=== PATIENT | female | born 1990 | race Caucasian/White ===

== ENCOUNTER 2017-05-10 10:44 | Inpatient (IN) | payer OTHER ==
[~2017-05-10] VITALS: Ht 166.4 cm; Wt 85.0 kg
--- OUTSIDE RECORDS SUMMARY | ~2017-05-10 | XMS ---
Demographics + + + | Address | [address] | | | [address] | | | [place] [address] | + + + | Preferred Language | Unknown | + + + | Marital Status | Unknown | + + + | Synagogue Affiliation | Unknown | + + + | Race | Unknown | + + + | Ethnic Group | Unknown | + + + Author + + + | Author | [facility] | + + + | Organization | [facility] | + + + | Address | [address] | | | [place] [address] | + + + | Phone | | + + + Care Team Providers + + + + | [facility] Name | Role | Phone | + + + + Unavailable | Unavailable | + + + + PROBLEMS +---------+ + + +--------+ + + | Type | Condition | ICD9-CM | SOD04-JU | Onset | Condition | SNOMED | | | | Code | Code | Dates | Status | Code | +---------+ + + +--------+ + + | Problem | Encounter | Z34.90 | | | Active | [id number] | | | for | | | | | | | | supervisio | | | | | | | | n of | | | | | | | | normal | | | | | | | | | | | | | | +---------+ + + +--------+ + + | Problem | Hemorrhagi | N83.20 | | | Active | [id number] | | | c cyst of | | | | | | | | ovary | | | | | | +---------+ + + +--------+ + + ALLERGIES Unknown Allergies SOCIAL HISTORY No smoking Hx information available PLAN OF CARE VITAL SIGNS MEDICATIONS Unknown Medications RESULTS No Results PROCEDURES No Known procedures IMMUNIZATIONS No Known Immunizations"
[~2017-05-10 10:44] MED LIST: IBUPROFEN800 MG PO; KEFLEX500 MG PO; NORCO 5-325 TA1 EACH PO
--- NOTE | 2017-05-11 05:55 | PR ---
[facility] [address] [place], [place] [address] Signed PP Progress Notes Datetime Report Generated by CPN: 05/11/2017 05:55 SUBJECTIVE: [id number] Pain: Within normal limits Nausea/Vomiting: Denies Flatus: Yes Vital Signs: [id number] Vital Signs: Reviewed; Within Normal Limits EXAM: [id number] Cardiovascular: Normal Respiratory: Normal Abdomen/Uterus: Normal Lochia: Normal Vulva/Perineum: Normal Breasts: Normal CVA Tenderness: Normal Extremities: Normal Incision: Not Applicable Progress: Not Applicable IMPRESSION/PLAN/PROCEDURES: [id number] Impression: Normal progression Plan: Discharge Progress Notes: patient doing well. Not having any smoking urge. Signing Physician: Daphney Beasley MD CC: *Electronically Signed* 05/11/17 0555 DAPHNEY BEASLEY MD PATIENT NAME: ORESTES MONTAÑO PROGRESS NOTE DATE OF : 86 PHYSICIAN: DAPHNEY BEASLEY MD RPT #: [id number] REPORT IS CONFIDENTIAL AND NOT TO BE RELEASED WITHOUT AUTHORIZATION
== END 2017-05-11 13:00 | disposition home or self-care (01) | DRG 775 ==
LOC: FBCO → FBC 11:00 → FBCO 05-25 10:11
PROVIDERS: ADMIT Obstetrics & Gynecology
PROC: 10907ZC Drainage of Amniotic Fluid, Therapeutic from Products of Conception, Via Natural or Artificial Opening (ICD-10-PCS; principal; 2017-05-10)
PROC: 10E0XZZ Delivery of Products of Conception, External Approach (ICD-10-PCS; 2017-05-10)
PROC: 0KQM0ZZ Repair Perineum Muscle, Open Approach (ICD-10-PCS; 2017-05-10)
PROC: 00HU33Z Insertion of Infusion Device into Spinal Canal, Percutaneous Approach (ICD-10-PCS; 2017-05-10)
PROC: 3E0R3CZ (ICD-10-PCS; 2017-05-10)
DX: O70.1 Second degree perineal laceration during delivery (principal); Z37.0 Single live birth; O99.334 Smoking (tobacco) complicating childbirth; F17.210 Nicotine dependence, cigarettes, uncomplicated; Z3A.37 37 weeks gestation of pregnancy; O99.344 Other mental disorders complicating childbirth; F32.9 Major depressive disorder, single episode, unspecified; O69.81X0 Labor and delivery complicated by cord around neck, without compression, not applicable or unspecified
CPT/HCPCS: 01960; 36415; 85027; J2590; J3010; J7120

== ENCOUNTER 2018-06-30 13:02 | Emergency (ER) | payer OTHER ==
[~2018-06-30] VITALS: Ht 165.1 cm; Wt 70.8 kg
[2018-06-30] MEDS ORDERED: NORCO 5-325 TA1 EACH PO (16:09)
== END 2018-06-30 16:15 | disposition home or self-care (01) ==
LOC: ED 13:02
DX: N80.8 Other endometriosis (principal); F17.200 Nicotine dependence, unspecified, uncomplicated
CPT/HCPCS: 80053; 81001; 83690; 84703; 85025; 96374; 96375; 99284; J1170; J1885

== ENCOUNTER 2019-01-04 22:09 | Emergency (ER) | payer OTHER ==
[~2019-01-04] VITALS: Ht 165.1 cm; Wt 69.0 kg
[~2019-01-04 22:09] MED LIST changes: +ADVIL200 MG PO
--- OUTSIDE RECORDS SUMMARY | 2019-01-04 22:12 | XMS ---
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 Violetta has no Care Guidelines for this patient. Emily VISIT COUNT (12 MO.) 3 [facility] TOTAL 3 NOTE: Visits indicate total known visits. ED/C VISIT TRACKING (12 MO.) 01/04/2019 22:10 [facility] [place] TYPE: Emergency COMPLAINT: - R HAND INJURY 06/30/2018 13:02 [facility] [place] TYPE: Emergency COMPLAINT: - ABD PAIN DIAGNOSES: - Pelvic and perineal pain - Acquired absence of other genital organ(s) - Nicotine dependence, unspecified, uncomplicated - Right lower quadrant pain - Acquired absence of ovaries, unilateral - Other endometriosis 03/23/2018 15:06 [facility] [place] TYPE: Emergency COMPLAINT: - L KNEE PAIN/NO INJURY/MSE TO CLINIC DIAGNOSES: - Overexertion from prolonged static or awkward postures, initial encounter - OVEREXERTION FROM PROLONGED STATIC OR AWKWARD POST - Pain in left knee INPATIENT VISIT TRACKING (12 MO.) No inpatient visits to display in this time frame [email or web address]
== END 2019-01-04 23:32 | disposition home or self-care (01) ==
LOC: ED 22:09
DX: S60.221A Contusion of right hand, initial encounter (principal); I25.2 Old myocardial infarction; Z90.710 Acquired absence of both cervix and uterus; F17.200 Nicotine dependence, unspecified, uncomplicated; Z88.0 Allergy status to penicillin; Z88.2 Allergy status to sulfonamides; W22.01XA Walked into wall, initial encounter
CPT/HCPCS: 73130; 99283

== ENCOUNTER 2019-09-01 09:17 | Emergency (ER) | payer OTHER ==
[~2019-09-01] VITALS: Ht 167.6 cm; Wt 60.8 kg
[2019-09-01] MEDS ORDERED: CLEOCIN HCL300 MG PO (10:32)
[2019-09-01] MEDS ORDERED: NORCO 5-325 TA1 EACH PO (10:32)
== END 2019-09-01 10:48 | disposition home or self-care (01) ==
LOC: ED 09:17
PROC: 0W9N0ZZ Drainage of Female Perineum, Open Approach (ICD-10-PCS; principal; 2019-09-01)
DX: L02.215 Cutaneous abscess of perineum (principal); F17.200 Nicotine dependence, unspecified, uncomplicated; Z88.0 Allergy status to penicillin; Z88.2 Allergy status to sulfonamides
CPT/HCPCS: 56405; 99283-25

== ENCOUNTER 2019-09-02 18:54 | Emergency (ER) | payer OTHER ==
[~2019-09-02] VITALS: Ht 167.6 cm; Wt 60.8 kg
[~2019-09-02 18:54] MED LIST changes: +CLEOCIN HCL300 MG PO
--- OUTSIDE RECORDS SUMMARY | 2019-09-02 18:58 | XMS ---
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 Violetta has no Care Guidelines for this patient. Emily VISIT COUNT (12 MO.) 4 [facility] TOTAL 4 NOTE: Visits indicate total known visits. ED/C VISIT TRACKING (12 MO.) [facility] COMPLAINT: - LOWER ABDOMINAL PAIN 09/01/2019 09:18 [facility] [place] TYPE: Emergency COMPLAINT: - LOWER EXTREMITY CYST 03/15/2019 13:56 [facility] [place] TYPE: Emergency COMPLAINT: - HEADACHE/BODY ACHES DIAGNOSES: - Acquired absence of both cervix and uterus - Headache - Allergy status to sulfonamides status - Allergy status to penicillin - Nicotine dependence, unspecified, uncomplicated 01/04/2019 22:10 [facility] [place] TYPE: Emergency COMPLAINT: - R HAND INJURY DIAGNOSES: - Allergy status to penicillin - Acquired absence of both cervix and uterus - Nicotine dependence, unspecified, uncomplicated - Pain in right hand - Allergy status to sulfonamides status - Walked into wall, initial encounter - Old myocardial infarction - Contusion of right hand, initial encounter INPATIENT VISIT TRACKING (12 MO.) No inpatient visits to display in this time frame [email or web address]
== END 2019-09-02 22:04 | disposition home or self-care (01) ==
LOC: ED 18:54
DX: R10.31 Right lower quadrant pain (principal); F17.200 Nicotine dependence, unspecified, uncomplicated; Z88.0 Allergy status to penicillin; Z88.2 Allergy status to sulfonamides
CPT/HCPCS: 74177; 80053; 81001; 83690; 83735; 84703; 85025; 99284-25; J2270; J2405; J7030; Q9967

== ENCOUNTER 2019-09-11 16:28 | Emergency (ER) | payer OTHER ==
[~2019-09-11] VITALS: Ht 167.6 cm; Wt 60.8 kg
[~2019-09-11 16:28] MED LIST changes: +IBU800 MG PO
--- OUTSIDE RECORDS SUMMARY | 2019-09-11 16:30 | XMS ---
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 EAnna VISIT COUNT (12 MO.) 6 [facility] TOTAL 6 NOTE: Visits indicate total known visits. ED/UCC VISIT TRACKING (12 MO.) 09/11/2019 16:28 [facility] [place] TYPE: Emergency COMPLAINT: - FLANK PAIN 09/06/2019 11:[address] [facility] TYPE: Emergency COMPLAINT: - ABDOMINAL PAIN 09/02/2019 18:55 [facility] TYPE: Emergency COMPLAINT: - LOWER ABDOMINAL PAIN DIAGNOSES: - Right lower quadrant pain - Nicotine dependence, unspecified, uncomplicated - Allergy status to sulfonamides status - Allergy status to penicillin 09/01/2019 09:18 [facility] [place] TYPE: Emergency COMPLAINT: - LOWER EXTREMITY CYST DIAGNOSES: - Pelvic and perineal pain - Allergy status to sulfonamides status - Cutaneous abscess of perineum - Nicotine dependence, unspecified, uncomplicated - Allergy status to penicillin 03/15/2019 13:56 [facility] [place] TYPE: Emergency [...] visits to display in this time frame [email or web address]
== END 2019-09-11 18:29 | disposition home or self-care (01) ==
LOC: ED 16:28
DX: R10.9 Unspecified abdominal pain (principal); F17.200 Nicotine dependence, unspecified, uncomplicated; Z88.0 Allergy status to penicillin; Z88.2 Allergy status to sulfonamides
CPT/HCPCS: 96374; 99284-25; J1885

== ENCOUNTER 2019-10-18 11:14 | Day surgery (SDC) | payer OTHER ==
[~2019-10-18] VITALS: Ht 167.6 cm; Wt 60.8 kg
--- NOTE | 2019-10-18 19:20 | NUR ---
10/18/191919 Patti Lyons 191- PT ARRIVES TO PACU AROUSABLE AND TRYING TO TALK. PT IS ABLE TO SAY SHE FEELS OKAY. RESP EVEN AND UNLABORED. OXYGEN SAT HIGH 90'S TO 100% ON 6L VIA BLOWBY THE PT IS NOT TOLERATING THE MASK BEING ON HER FACE. 1911 AND 1914 VITALS THE PT IS ON BLOW BY OXYGEN NOT BIPAP. 1919- OXYGEN TITRATED OFF.
--- NOTE | 2019-10-18 19:50 | NUR ---
VITALS DONE AND CHARTED. BEDSIDE TABLE AND CALL LIGHT IN REACH. SCD'S PUT ON. WARM BLANKET GIVEN. PT NEEDS NOTHING MORE AT THIS TIME.
--- NOTE | 2019-10-18 20:04 | NUR ---
PT ARRIVED ON THE FLOOR. ALERT, ORIENTED X4. DENIED PAIN. NO NAUSEA. ASKED FOR MORE ICE CHIPS AND JELO. LUNGS CLEAR, HR REGULAR, VSS WNL. FAMILY AT THE BEDSIDE, SUPPORTIVE.
--- NOTE | 2019-10-18 20:45 | NUR ---
PHONE CALL TO MD. TELEPHONE ORDERS FOR MEDICATIONS, TAKE HOME PACKS REPEATED BACK.
--- NOTE | 2019-10-18 21:02 | NUR ---
pt UP AMBULATING IN ROOM. DENIES DIZZINESS, NUMBNESS IN EXTREMITIES. 100 ML VOID NOTED. TOLERATING PO INTAKE, NO NAUSEA. BATCH TRUCKER RN CALLED, WILL BRING TAKE HOME PACKS.
--- NOTE | 2019-10-18 21:41 | NUR ---
DEBORAH GROVE REMOVED IV. PT REPORTED PAIN 6/10, PERCOSET AND IBUPROFEN WERE GIVEN. DISCHRGE EDUCATION WAS POVIDED BY CHARGE NURSE. ALL QUESTIONS WERE ANSWERED. PT HAD ALL HER BELONGINS UPON DISCHRGE. SHE WAS WHEELED OUT BY DEBORAH.
--- NOTE | 2019-10-18 21:42 | NUR ---
IV REMOVED BY SAUNDRA CABRERA. PATIENT PROVIDED WITH EDUCATION ON PATCH. PATIENT VERBALIZED UNDERSTANDING. PATIENT PROVIDED WITH TAKE HOME PACK. PATIENT GIVEN PRN PAIN MEDICATION PER ORDER. PATIENT PROVIDED WITH DC INSTRUCTIONS. PATIENT DENIES ANY COMMENTS, QUESTIONS OR CONCERNS. NO NEEDS NOTED. CALL LIGHT IN REACH.
--- NOTE | 2019-10-19 09:32 | CONS ---
[facility] [address], [place] [address] Signed DATE OF CONSULTATION: 10/18/2019 HISTORY OF PRESENT ILLNESS: The patient is a 29-year-old female, 7, para 3, SAB 4, who is status post prior TLH-LSO, who presented to the emergency room tonight with acute onset of right flank and right lower quadrant pain. The pain began approximately 3 p.m. on 10/17. She initially thought she had pulled a muscle and treated herself with pain patches such as Icy Hot, but really did not receive any relief. Since that time, she has been unable to sleep or get comfortable in any position. She has had some nausea, but no vomiting. Her bowels have been moving normally. She has no urinary symptoms. The pain is constant and not spasmodic. She does have a history of endometriosis and has undergone prior TLH-LSO for similar symptoms. She had a similar episode of pain one month ago and did have a laparoscopy, but a ruptured cyst was found and no other abnormalities. REVIEW OF SYSTEMS: Otherwise negative. PAST MEDICAL HISTORY/SURGERIES: In 2004, tonsillectomy. In 2005, left breast lumpectomy which was benign. In June 2015, LSO. In July 2018, TLH. In August 2019, laparoscopy. Illnesses are positive for history of migraines in the past. ALLERGIES: Penicillin and sulfa with hives. MEDICATIONS: None. HABITS: Positive tobacco, about one pack per day. Positive for alcohol use occasionally. Negative for drug use. PHYSICAL EXAMINATION: VITAL SIGNS: Stable. Blood pressure 117/79, pulse 45, and temperature 99.4. GENERAL: She is a well-developed and well-nourished female in mild distress. She is alert and oriented. Her affect is pleasant. LUNGS: Clear. HEART: Regular rate and rhythm without murmur. ABDOMEN: Has positive bowel sounds. It is soft. It is tender in the lower quadrants, right greater than left. She also has right CVA tenderness. She has no rebound. PELVIC: Deferred. LABORATORY DATA: Electronically Signed By: RIZWANA CEDILLO MD 10/19/19 0932 PATIENT NAME: ORESTES MONTAÑO CONSULTATION DATE OF : 86 REPORT #: [id number] PHYSICIAN: RIZWANA CEDILLO MD PCP: BLANKA HERNANDEZ PAC REPORT IS CONFIDENTIAL AND NOT TO BE RELEASED WITHOUT AUTHORIZATION [facility] [address], [place] [address] Signed H and H were 13.7 and 41.4, white count 7.8, and platelets 209,000. CMP was completely normal. Urine was negative. Ultrasound revealed a right ovary measuring 9.2 x 5.6 x 5.8 cm with three cysts with moderate echogenic free fluid in the abdomen. There was blood flow noted to the ovary. IMPRESSION: Probable hemorrhagic right ovarian cyst with probable rupture given the echogenic free fluid. This ovary has been the cause of recurrent pain. At this point, I feel laparoscopy with RSO was her best option. She will be menopausal and it is stressed that she will need to use estrogen replacement to protect her bones and her heart. The risks of surgery including, but not limited to, infection, bleeding, and possible open procedure as well as intraabdominal or pelvic injury were all discussed. She had no questions and requests no further information. She is also a smoker and this was also discussed. PLAN: Laparoscopy with RSO BRENDA. Rizwana Cedillo MD PJW/MODL /[id number] cc: Sunny Mccarty DO Copies: SUNNY MCCARTY DO ~ Electronically Signed By: RIZWANA CEDILLO MD 10/19/19 0932 PATIENT NAME: ORESTES MONTAÑO CONSULTATION DATE OF : 86 REPORT #: [id number] PHYSICIAN: RIZWANA CEDILLO MD PCP: BLANKA HERNANDEZ PAC REPORT IS CONFIDENTIAL AND NOT TO BE RELEASED WITHOUT AUTHORIZATION
--- NOTE | 2019-10-19 09:35 | OR ---
[facility] [address] [place], [place] [address] Signed DATE OF OPERATION: 10/18/2019 SURGEON: Rizwana Cedillo MD COMMUNITY RELATIONS ASSISTANT: Eduardo Dunlap MD PREOPERATIVE DIAGNOSES: Pelvic pain and right ovarian mass. POSTOPERATIVE DIAGNOSES: Pelvic pain and right ovarian mass with right ovarian torsion. PROCEDURE: Laparoscopy with right oophorectomy. ANESTHESIA: General ET. ESTIMATED BLOOD LOSS: 15 mL. DRAINS: None. INDICATIONS AND FINDINGS: The patient is a 29-year-old female, 7, para 3, AB 4, who presented to the emergency room with a history of pain, which began suddenly at 3 p.m. yesterday. The pain worsened since that time and the patient was unable to become comfortable in any position and was unable to sleep. When she presented to the emergency room, she was found to have a right adnexal mass approximately 9 cm consisting of three separate cysts. There was a moderate amount of free blood in the abdomen. There was blood flow to the ovary, though there was still a question of possible torsion. The patient was consented and taken to the operating room. At the time of surgery, there was a moderate amount of blood in the abdomen. There was a large right adnexal mass and there was torsion noted. DESCRIPTION OF PROCEDURE: The patient was prepped and draped in the dorsal lithotomy position. A sponge stick was placed in the vagina and a Villaseñor catheter was placed at the onset of surgery. Following Electronically Signed By: RIZWANA CEDILLO MD 10/19/19 0935 PATIENT NAME: ORESTES MONTAÑO OPERATIVE REPORT DATE OF : 86 REPORT #: [id number] PHYSICIAN: RIZWANA CEDILLO MD PCP: BLANKA HERNANDEZ PAC REPORT IS CONFIDENTIAL AND NOT TO BE RELEASED WITHOUT AUTHORIZATION [facility] [address] [place], [place] [address] Signed this, attention was directed to the abdomen. The infraumbilical area was injected with 0.5% Marcaine plain. An incision was made through her prior incision and then each layer was serially elevated until the fascia was opened and identified. The fascia was very scarred given her prior surgeries. Stay sutures of 0 Vicryl were placed. Peritoneum was opened bluntly and the [place] cannula was placed. Placement of the scope confirmed proper positioning. CO2 was then introduced in the abdomen. Following this, secondary ports were placed in the right and left lower quadrants. These areas were transilluminated and injected with Marcaine. Incisions were made with a knife and the trocars were placed under direct vision. These were 5 mm ports. Following this, the pelvis was visualized and the decision was made to proceed with right oophorectomy given the torsion. The infundibulopelvic ligament was grasped and cauterized with LigaSure [place] device. This was done multiple times and then divided. The ovary was then removed from the pelvic sidewall with serial coagulation and division. The ovary was then dropped into the pelvis. 0 PDS Endoloop was then placed over the infundibulopelvic ligament to aid in hemostasis. Following this, the ovary was placed into a bag and this was brought out through the umbilical port. This required the ovary to be torn up to make it smaller in an effort to fit through the port. Following this, the [place] cannula was then replaced at the umbilicus and the balloon reinflated. The abdomen was then reinflated as well. The abdomen was then copiously irrigated and inspected. There was some blood noted above the liver and this was irrigated out as well. The patient was taken out of Trendelenburg and re-irrigated and as much fluid removed from the abdomen as possible. Following this, the pelvis was re-examined. There was no evidence of any ongoing bleeding. The pressure was turned down as well and again there was no evidence of any bleeding. The procedure was then terminated. The instruments were removed from the abdomen after allowing as much CO2 as possible to escape. The fascial incision of the umbilicus was re-identified and was closed with running suture of 0 Vicryl. There was quite a bit of bleeding in the subcu areas and these were cauterized. The deep space of the umbilicus was closed with a subcu suture of the 3-0 Vicryl Rapide. The skin incisions were closed with subcuticular sutures of 3-0 Vicryl Rapide. Following this, the sponge stick was removed from the vagina as was the Villaseñor. The patient was then taken to the recovery room in good condition. Rizwana Cedillo MD PJW/MODL /[id number] Electronically Signed By: RIZWANA CEDILLO MD 10/19/19 0935 PATIENT NAME: ORESTES MONTAÑO OPERATIVE REPORT DATE OF : 86 REPORT #: [id number] PHYSICIAN: RIZWANA CEDILLO MD PCP: BLANKA HERNANDEZ PAC REPORT IS CONFIDENTIAL AND NOT TO BE RELEASED WITHOUT AUTHORIZATION [facility] [address] [place], [place] [address] Signed cc: Dr. Lul Dunlap MD Copies: EDUARDO DUNLAP MD ~ Electronically Signed By: RIZWANA CEDILLO MD 10/19/19 0935 PATIENT NAME: ORESTES MONTAÑO OPERATIVE REPORT DATE OF : 86 REPORT #: [id number] PHYSICIAN: RIZWANA CEDILLO MD PCP: BLANKA HERNANDEZ PAC REPORT IS CONFIDENTIAL AND NOT TO BE RELEASED WITHOUT AUTHORIZATION
--- NOTE | 2019-10-21 11:43 | PATH ---
[facility] [address] [place] [address] Signed SPECIMEN(S): A RIGHT OVARY SPECIMEN SOURCE: A. RIGHT OVARY CLINICAL HISTORY: Possible hemorrhagic right ovarian cyst, torsion of right ovary. S/P right ovary torsion. FINAL PATHOLOGIC DIAGNOSIS: Right ovary, right oophorectomy: - Fragments of ovarian parenchyma with hemorrhage and congestion, compatible with ovarian torsion. - Some fragments of fibrin within a cystic cavity, suggestive of hemorrhagic cyst. DDF:smn:C2NR MICROSCOPIC EXAMINATION: Histologic sections of all submitted blocks are examined by light microscopy. These findings, together with the gross examination, support the pathologic diagnosis. GROSS DESCRIPTION: The specimen, labeled "CB, right ovary," is received in formalin and consists of numerous dark red, congested tissue fragments that in aggregate measure 11.5 x 8.0 x 2.2 cm. Sectioning through the specimen reveals ovary tissue and red-arizmendi congested and hemorrhagic tissue fragments. Digital Analyst sections are submitted in cassettes (A1-A2). JS (under the direct supervision of a pathologist) The Gross Description was prepared using a voice recognition system. The report was reviewed for accuracy; however, sound-alike word errors, addition and/or deletions may occur. If there is any question about this report, please contact Client Services. PERFORMING LABORATORY: The technical component was performed by [facility], [address] [place] [id number] (Maple Sugar Maker: Beatriz Bush MD; CLIA# [id number]). The professional [facility], [address] [place] [address]. Diagnostician: Ramiro Vasquez DO PATIENT NAME: ORESTES MONTAÑO PATHOLOGY DATE OF : 86 REPORT #: [id number] PHYSICIAN: ANNALEE PATHOLOGY PCP: BLANKA HERNANDEZ PAC REPORT IS CONFIDENTIAL AND NOT TO BE RELEASED WITHOUT AUTHORIZATION [address] [address] Signed Pathologist Electronically Signed 10/21/2019 Copies: ~ PATIENT NAME: ORESTES MONTAÑO PATHOLOGY DATE OF : 86 REPORT #: [id number] PHYSICIAN: ANNALEE PATHOLOGY PCP: BLANKA HERNADNEZ PAC REPORT IS CONFIDENTIAL AND NOT TO BE RELEASED WITHOUT AUTHORIZATION
== END 2019-10-18 21:38 | disposition home or self-care (01) ==
LOC: ED 11:14 → DS 17:19 → MS 17:19 → DS 21:38
PROVIDERS: Obstetrics & Gynecology
PROC: 0UT04ZZ Resection of Right Ovary, Percutaneous Endoscopic Approach (ICD-10-PCS; principal; 2019-10-18 17:34)
DX: N83.511 Torsion of right ovary and ovarian pedicle (principal); F17.210 Nicotine dependence, cigarettes, uncomplicated; Z88.0 Allergy status to penicillin; Z88.2 Allergy status to sulfonamides; Z90.710 Acquired absence of both cervix and uterus
CPT/HCPCS: 00840; 76830; 76856; 80053; 81001; 83690; 85025; 96361; 99285-25; J1100; J1885; J2270; J2405; J2704; J3010; J7030; J7121

== ENCOUNTER 2021-07-29 08:49 | Emergency (ER) | payer OTHER ==
[~2021-07-29] VITALS: Ht 167.6 cm; Wt 60.8 kg
[2021-07-29] MEDS ORDERED: ESTRADIOL2 MG PO (09:12)
[2021-07-29] MEDS ORDERED: VALACYCLOVIR1000 MG PO (09:13)
[2021-07-29] MEDS ORDERED: HYDROCODON-ACE1 EA10 PO (14:23)
== END 2021-07-29 14:39 | disposition home or self-care (01) ==
LOC: ED 08:49
DX: R10.9 Unspecified abdominal pain (principal); F17.200 Nicotine dependence, unspecified, uncomplicated; Z88.0 Allergy status to penicillin; Z88.2 Allergy status to sulfonamides; Z91.048 Other nonmedicinal substance allergy status; Z79.899 Other long term (current) drug therapy
CPT/HCPCS: 74176; 74177; 80053; 81001; 83605; 83690; 85025; 86140; 96375; 96376; 99284-25; J1885; J2270; J2405; J7030; Q9967

== ENCOUNTER 2022-02-26 12:06 | Emergency (ER) | payer OTHER ==
[~2022-02-26] VITALS: Ht 167.6 cm; Wt 57.6 kg
[~2022-02-26 12:06] MED LIST changes: +ESTRADIOL2 MG PO; +HYDROCODON-ACE1 EA10 PO; +VALACYCLOVIR1000 MG PO
--- NOTE | 2022-02-28 11:42 | EKG ---
[facility] [address] [place] [address] Signed Sinus bradycardia Otherwise normal ECG When compared with ECG of 29-JUL-2018 13:09, Vent. rate has decreased BY 26 BPM Confirmed by SOPHIE NICKERSON MD ([id number]) on 02/28/2022 11:42:42 AM Electronically Signed By: SOPHIE NICKERSON MD 02/28/22 1142 PATIENT NAME: ORESTES MONTAÑO Electrocardiogram DATE OF : 86 PHYSICIAN: SOPHIE NICKERSON MD REPORT #: [id number] REPORT IS CONFIDENTIAL AND NOT TO BE RELEASED WITHOUT AUTHORIZATION
== END 2022-02-26 16:16 | disposition home or self-care (01) ==
LOC: ED 12:06
DX: R07.89 Other chest pain (principal); G44.209 Tension-type headache, unspecified, not intractable; F17.200 Nicotine dependence, unspecified, uncomplicated; Z88.0 Allergy status to penicillin; Z88.2 Allergy status to sulfonamides; Z91.09 Other allergy status, other than to drugs and biological substances; Z79.899 Other long term (current) drug therapy; Z20.822 Contact with and (suspected) exposure to COVID-19
CPT/HCPCS: 36415; 71045; 80053; 81001; 84484; 84703; 85025; 85379; 87502; 93005; 93010; 96361; 96374; 99285-25; A9270; C9803; J1885; J7030; U0003

== ENCOUNTER 2024-12-10 09:04 | Emergency (ER) | payer OTHER ==
[~2024-12-10] VITALS: Ht 167.6 cm; Wt 56.2 kg
[~2024-12-10 09:04] MED LIST changes: +PREDNISONE20 MG PO
[2024-12-10] MEDS ORDERED: SODIUM CHLORIDE 0.9% 1,000 ML IV ONE (09:45)
[2024-12-10] MEDS ORDERED: MORPHINE SULFATE 4 MG/ML VIAL IV ONE (09:45)
[2024-12-10] MEDS ORDERED: ondansetron HCL 4 MG/2 ML VIAL IV ONE (09:45)
[2024-12-10 09:48] LABS: BASOPHILS 0.4 % (0-2); EOSINOPHILS 1.5 % (0-6); HEMATOCRIT 38.5 % (35.0-50.0); HEMOGLOBIN 13.3 g/dL (12.0-18.0); MCH 28.8 (27-36); MCHC 34.5 g/dl (30-36); MCV 83.6 fl (81-99); MONOCYTES 9.9 % (0-12); NEUTROPHILS 52.2 % (39-80); PLATELET COUNT 213 K/uL (140-440); RBC 4.61 M/ul (4.3-5.7)
[2024-12-10 09:50] LABS: BILIRUBIN, URINE POSITIVE (negative); BLOOD/HGB, URINE NEGATIVE (Negative); KETONE, URINE TRACE (Negative); LEUK ESTERASE, URINE NEGATIVE (negative); NITRITE, URINE NEGATIVE (negative); PH, URINE 5.5 (5-7)
[2024-12-10] MEDS ORDERED: VITAMIN D21250 MCG (09:56)
[2024-12-10] MEDS ORDERED: SERTRALINE HCL25 MG PO (09:56)
[2024-12-10 10:03] LABS: ALBUMIN 4.1 g/dL (3.4-5.0); ALBUMIN/GLOBULIN RATIO 1.21 (1.1-2.4); ANION GAP 11.6 (7-21); BILIRUBIN, TOTAL 0.6 mg/dL (0.2-1.0); BUN/CREATININE RATIO 7.44 (6.0-28.6); CALCIUM 8.8 mg/dL (8.5-10.1); CREATININE, SERUM 0.94 mg/dL (0.55-1.02); POTASSIUM 3.6 mmol/L (3.5-5.1); PROTEIN, TOTAL 7.5 g/dL (6.4-8.2)
[2024-12-10 12:28] VITALS: BP 98/68
== END 2024-12-10 12:25 | disposition home or self-care (01) ==
LOC: ED 09:04
PROVIDERS: Emergency Medicine
DX: R10.84 Generalized abdominal pain (principal); F17.200 Nicotine dependence, unspecified, uncomplicated
CPT/HCPCS: 36415; 74177; 76705; 80053; 81003; 83690; 84703; 85025; 96361; 96375; 99284-25; J2270; J2405; J7030; Q9967

== ENCOUNTER 2025-02-22 19:10 | Emergency (ER) | payer OTHER ==
[~2025-02-22] VITALS: Ht 167.6 cm; Wt 58.4 kg
[~2025-02-22 19:10] MED LIST changes: +SERTRALINE HCL25 MG PO; +VITAMIN D21250 MCG
[2025-02-22] MEDS ORDERED: TRAMADOL HCL 50 MG TAB PO ONE (19:30)
[2025-02-22] MEDS ORDERED: CELEBREX200 MG PO (19:56)
[2025-02-22 20:03] VITALS: BP 136/97
== END 2025-02-22 20:03 | disposition home or self-care (01) ==
LOC: ED 19:10
DX: S93.401A Sprain of unspecified ligament of right ankle, initial encounter (principal); F17.200 Nicotine dependence, unspecified, uncomplicated; W01.0XXA Fall on same level from slipping, tripping and stumbling without subsequent striking against object, initial encounter; Z79.899 Other long term (current) drug therapy; Z88.0 Allergy status to penicillin; Z88.2 Allergy status to sulfonamides; Z91.048 Other nonmedicinal substance allergy status
CPT/HCPCS: 73610; 99283